=== PATIENT | male | born 1995 | race Hispanic/Latino ===

== ENCOUNTER 2020-11-25 16:46 | Emergency (ER) | payer SELFPAY ==
[2020-11-25] MEDS ORDERED: Ibuprofen 800 MG TAB ONE (17:02)
[2020-11-25] MEDS ORDERED: Sulfameth/Trimethoprim DS 800-160mg TAB ONE (17:02)
== END 2020-11-25 17:10 | disposition home or self-care (01) ==
LOC: BURERS 16:46
DX: S61.432A Puncture wound without foreign body of left hand, initial encounter (principal); F17.210 Nicotine dependence, cigarettes, uncomplicated; W45.0XXA Nail entering through skin, initial encounter
CPT/HCPCS: 99283